=== PATIENT | female | born 1960 | race Caucasian/White ===

== ENCOUNTER 2017-12-06 07:20 | Day surgery (SDC) | payer OTHER ==
[2017-12-06] MEDS ORDERED: PROPOFOL 200 MG/20 ML VIAL As Ordered ×2 (07:25→09:17)
[2017-12-06] MEDS: NS 1,000 ML IV (07:34)
== END 2017-12-06 09:46 | disposition home or self-care (01) ==
LOC: M SDC 07:20
DX: K64.0 First degree hemorrhoids (principal); R10.30 Lower abdominal pain, unspecified; R19.4 Change in bowel habit; E03.9 Hypothyroidism, unspecified; Z88.0 Allergy status to penicillin; Z88.2 Allergy status to sulfonamides; Z79.899 Other long term (current) drug therapy; K58.8 Other irritable bowel syndrome; J45.909 Unspecified asthma, uncomplicated
CPT/HCPCS: 45378

== ENCOUNTER → 2018-09-15 | Outpatient (CLI) | payer OTHER ==
[~2018-09-15] MED LIST: CALC600T57 PO; DICY1CAP8 PO; OMEG100011 PO; PARO10TA3 PO; SIMV40TA2 PO; TIRO112C3 PO; VITA200015 PO; VITA50005 PO
--- NOTE | 2018-09-25 15:25 | SLEEPHOME ---
DATE OF PROCEDURE: 09/15/2018 INTERPRETATION: Diagnostic home sleep testing was performed due to concern for sleep apnea syndrome in this patient with symptoms of excessive daytime sleepiness, insomnia, snoring, and observed apneas. Portable home monitoring was performed using NOX-T3 respiratory monitoring device. Continuous record was made of pulse, oxygen saturation, airflow, chest and abdominal strain. There were 494.5 minutes of data analyzed of presumed sleep. During this sleep interval, 374 respiratory events were identified of 10 seconds in duration or longer for a respiratory event index of 45.4. The events were predominantly obstructive apneas and hypopneas, though there were some mixed events identified. The patient's baseline saturation was 93% with a minimum recorded value of 74%. The patient's average pulse was 71.4 beats per minute, with her highest heart rate 101 beats per minute. Testing was performed in all positions. IMPRESSION: Abnormal home sleep test with repetitive respiratory events. A respiratory event index of at least 45.4 is consistent with severe obstructive sleep apnea. She also has desaturated down to low 70s. RECOMMENDATIONS: Recommend the patient be sent to the sleep disorder center for formal determination of pressure therapy. I feel this is very important, particularly given how low her oxygen saturation can get when she is sleeping.
== END ==
LOC: M SLEEP HO 09:34
PROVIDERS: ATTEND Internal Medicine Pulmonary Disease
DX: R40.0 Somnolence (principal)

== ENCOUNTER → 2020-04-05 | Outpatient (CLI) | payer OTHER ==
[~2020-04-05] MED LIST changes: +D31000TA2 PO; +MULTCAP PO; +OCUV1CAP4 PO; +OMEG1CAP4; +SIMV20TA22; -SIMV40TA2 PO; +SIMV40TA20 PO; +TIRO100C3
== END ==
LOC: M LABSMTC 10:51
PROVIDERS: ATTEND Anesthesiology
DX: Z01.812 Encounter for preprocedural laboratory examination (principal); Z20.828 Contact with and (suspected) exposure to other viral communicable diseases
CPT/HCPCS: C9803; U0003

== ENCOUNTER 2020-04-10 08:32 | Day surgery (SDC) | payer BC ==
[~2020-04-10] VITALS: Ht 165.1 cm; Wt 69.9 kg
[~2020-04-10 08:32] MED LIST changes: +LIDOCAINE 1% MDV 20ML VIAL SQ PRN; +LR 1,000 ML IV ONE; +PHENAZOPYRIDINE 100 MG TAB PO ONE; +ceFAZolin SOD 2 GM in IV 1 EA IV ONE
[2020-04-10 09:26] LABS: HEMATOCRIT 44.7 % (36.0-47.0); HEMOGLOBIN 14.7 g/dl (12.0-15.5); MEAN CORPUSCULAR HEMOGLOBIN 29.3 pg (27.0-33.0); MEAN CORPUSCULAR HGB CONC 32.9 g/dl (32.0-36.5); PLATELET COUNT, AUTOMATED 271 10^3/uL (150-450); RED BLOOD COUNT 5.02 10^6/uL (4.00-5.40); WHITE BLOOD COUNT 6.3 10^3/uL (4.0-10.0)
[2020-04-10] MEDS ORDERED: REST0.057 OP (09:31)
[2020-04-10] MEDS ORDERED: ROCURONIUM BROMIDE 50 MG/5 ML VIAL As Ordered ONE ×2 (11:09→11:18)
[2020-04-10] MEDS ORDERED: KETOROLAC 60MG 2ML VIAL As Ordered ONE (11:09)
[2020-04-10] MEDS ORDERED: ONDANSETRON 4MG/2ML VIAL As Ordered ONE (11:09)
[2020-04-10] MEDS ORDERED: SUGAMMADEX SODIUM 500 MG/5 ML VIAL (BRIDION) As Ordered ONE (11:09)
[2020-04-10] MEDS ORDERED: propofoL 200 MG/20 ML VIAL As Ordered ONE (11:09)
[2020-04-10] MEDS ORDERED: LIDOCAINE 2% 100MG/5ML SDV (FOR ANES.) As Ordered ONE (11:09)
[2020-04-10] MEDS ORDERED: HYDROmorphone HCL 2 MG/ML 1ML VIAL (J1170) As Ordered ONE (11:09)
[2020-04-10] MEDS ORDERED: MIDAZOLAM INJ 2MG/2ML VIAL (J2250 PER 1MG) As Ordered ONE (11:09)
[2020-04-10] MEDS ORDERED: fentaNYL 100 MCG/2 ML INJECTION (J3010) As Ordered ONE ×2 (11:09→14:16)
[2020-04-10] MEDS ORDERED: dexameTHASONE 4 MG/ML 1ML VIAL (J1100 PER 1MG) As Ordered ONE (11:09)
[2020-04-10] MEDS ORDERED: ACETAMINOPHEN 1000MG 100ML IV BTL (OFIRMEV) (J0131 PER 10MG) As Ordered ONE (11:17)
[2020-04-10] MEDS ORDERED: VASOPRESSIN INJ 20 UNITS/ML VIAL As Ordered ONE (11:18)
[2020-04-10] MEDS ORDERED: hydrALAZINE 20MG/ML 1ML VIAL (J0360 PER 20MG) As Ordered ONE (11:43)
[2020-04-10] MEDS ORDERED: DESFLURANE 240 ML INHALANT As Ordered ONE (12:00)
[2020-04-10] MEDS ORDERED: MORPHINE 1MG/ML IN 0.9% NACL 100ML IV BAG As Ordered ONE (14:01)
[2020-04-10] MEDS ORDERED: ONDANSETRON 4MG/2ML VIAL IV PRN (14:15)
[2020-04-10] MEDS ORDERED: oxyCODONE 5MG TAB PO PRN (14:15)
[2020-04-10] MEDS ORDERED: LR 1,000 ML IV SCH ×2 (14:15→14:30)
[2020-04-10] MEDS ORDERED: fentaNYL 100 MCG/2 ML INJECTION (J3010) IV PRN (14:15)
[2020-04-10] MEDS ORDERED: NALOXONE INJ 0.4MG/1ML VIAL (J2310 PER 1MG) IV PRN (14:30)
[2020-04-10] MEDS ORDERED: diphenhydrAMINE 50MG/ML VIAL (J1200) IV PRN (14:30)
[2020-04-10] MEDS ORDERED: MORPHINE 1MG/ML IN 0.9% NACL 100ML IV BAG IV PRN (14:30)
[2020-04-10] MEDS ORDERED: EPIDURAL/PCA KEYS XX PRN (14:30)
[2020-04-10] MEDS ORDERED: IBUPROFEN 600MG TAB PO PRN (14:30)
[2020-04-10] MEDS ORDERED: NALBUPHINE HCL 10 MG/ML AMP (J2300) IV PRN (14:30)
[2020-04-10 15:50] VITALS: BP 100/54
[2020-04-10 16:20] VITALS: BP 106/55
[2020-04-10 17:20] VITALS: BP 128/58
[2020-04-10 18:20] VITALS: BP 110/58
[2020-04-10 19:45] VITALS: BP 126/60
[2020-04-10] MEDS ORDERED: SIMVASTATIN 20 MG TAB PO SCH (21:00)
[2020-04-10] MEDS ORDERED: PROMETHAZINE INJ 25 MG/ML VIAL (J2550) IV ONE (21:15)
[2020-04-10] MEDS: OMEGA-3 1000MG CAPSULE PO SCH (22:06)
[2020-04-11] VITALS: BP 142/66
[2020-04-11 04:00] VITALS: BP 124/58
[2020-04-11] MEDS ORDERED: NORCO, ANEXSIA 5/325MG TABLET (HYDROcodone/ACETAMINOPHEN) PO PRN (06:00)
[2020-04-11] MEDS ORDERED: LEVOTHYROXINE 100MCG TABLET (0.1MG) PO SCH (06:00)
[2020-04-11 07:59] LABS: HEMATOCRIT 37.4 % (36.0-47.0); MEAN CORPUSCULAR HGB CONC 31.8 g/dl (32.0-36.5); MEAN CORPUSCULAR VOLUME 91.2 fl (80.0-96.0); PLATELET COUNT, AUTOMATED 247 10^3/uL (150-450); WHITE BLOOD COUNT 13.4 10^3/uL (4.0-10.0)
[2020-04-11 08:00] VITALS: BP 116/56
[2020-04-11 08:03] LABS: HEMOGLOBIN 11.9 g/dl (12.0-15.5)
[2020-04-11] MEDS: OMEGA-3 1000MG CAPSULE PO SCH (09:25)
[2020-04-11] MEDS ORDERED: IBUP-1114 PO (11:01)
[2020-04-11] MEDS ORDERED: NORC1TAB7 PO (11:01)
--- NOTE | 2020-04-11 11:03 | RO ---
DATE OF OPERATION: 04/10/2020 PREOPERATIVE DIAGNOSIS: Symptomatic prolapse and desire for oophorectomy. POSTOPERATIVE DIAGNOSIS: Symptomatic prolapse and desire for oophorectomy. PROCEDURE: Laparoscopic-assisted vaginal hysterectomy with bilateral salpingo- oophorectomy and sacrospinous suspension with anterior and posterior repair, perineorrhaphy and cystourethroscopy. SURGEON: Sally Lewis MD PICK UP DRIVER: None ANESTHESIA: General endotracheal anesthesia BRIEF DESCRIPTION OF PROCEDURE AND FINDINGS: Calli was brought to the operating room where sufficient general endotracheal anesthesia was induced and she was prepped, draped and positioned in the usual sterile fashion. The uterine manipulator placed and the Hall with the ability to backfill placed. A semilunar incision was made below the umbilicus with sharp and blunt dissection continued to the level of the rectus fascia which was elevated with Deny clamps, transversely incised and carefully evaluated so that we could dissect to the level of the peritoneum underwent direct visualization and the Gerber was placed into the peritoneal cavity in open laparoscopic again under direct visualization with the 0 Vicryl retention sutures used to secure the Greber trocar. CO2 insufflation was then begun. After adequate CO2 insufflation, the peritoneal cavity was visualized. There were some minor adhesions on the left side and a benign appearing paratubal cyst but otherwise normal appearance. Using the #45 Enseal, the infundibulopelvic ligaments were carefully isolated, cauterized, transected and then the dissection continued through the broad ligament to the level of the round which was also carefully cauterized and transected and the superior aspect of the broad ligament further dissect and then attention was turned to the vaginal portion of the case with the instruments removed above, trocar left in place and the uterine manipulator removed and single-tooth tenacula placed on the anterior and posterior aspect of the cervix. Working vaginally, a circumferential incision was made around the base of the cervix. Sharp and blunt dissection was used to dissect free the tissues until the cardinal ligaments could be isolated and the BeltranLynch clamps were used to clamp them. They were transected and then 0 Vicryl used to suture these pedicles. The uterosacral ligament then carefully clamped, transected and ligated and held for resecuring with the cuff and the peritoneal reflection entered posteriorly and then anteriorly and the uterus carefully delivered with the uterine vasculature, carefully clamped, transected and ligated in a sequential fashion around the lateral aspect of the uterus which was delivered with the attached ovaries and tubes which already had been freed from above. Working again vaginally, the peritoneum at the vaginal cuff was closed and then the dissection was continued anteriorly and posteriorly to free the vaginal vesical tissues anteriorly and the rectovaginal tissues posteriorly in preparation for the sacrospinous suspension. We then dissected to the right sacrospinous ligament and Anchorsure anchors were placed. We used two Anchorsure anchors. Each of those anchors had two 2-0 Maxon sutures so that we had four sutures when we were done and with the peritoneum already closed, we used a Cardoza needle to bring out those sutures in a four point suspension of the vaginal cuff. We had already taken a V of tissue anteriorly over the cystocele and then used Allis clamps to hold the tissue and bring them up to the ligament so that we estimate appropriate placement for these sutures and then having placed all four points for our four point suspension, we closed the cuff itself, letting the V open up and come across anteriorly because there was redundancy there and with the cuff closed and good hemostasis and of course the count correct, we went ahead and tied down the first throw on each of those four sutures for the four point suspension and then did cystourethroscopy. The patient had taken pyridium preoperatively and we were readily able to see jets of urine from both ureters and an absence of injury to the bladder of any sort and reasonable support especially in this patient who is only 59 years old and of course, wants continued function. We went ahead then and threw the rest of the throws on those Maxon suture and then reevaluated at the introitus because she had a separation of the rectovaginal septum and the perineal body which created a weak spot especially extending to the left side. So we went ahead and took a triangle of tissue at the introitus and then extended that triangle into sort of a gia- like shape up into the vagina, overlaying this defect in the rectovaginal septum. I then dissected the vaginal epithelium free and used 2-0 Vicryl to support the underlying tissues to close that defect and reconnect the septum to the perineal body and to also plicate the levators but we took care to close that defect. We then resupported the perineal body with 0 Vicryl and then closed the skin layer with 2-0 Vicryl in a running locked stitch in the vagina and then a subcu stitch over the perineum and then that portion of the procedure was ended. There was good hemostasis and approximation at each of these steps. We turned our attention back to the abdomen and removed the trocar at the umbilicus, used the 0 Vicryl retention sutures to close the deep layer and then used 3-0 Vicryl in a subcuticular stitch to close the skin and a dry sterile dressing was then applied. ESTIMATED BLOOD LOSS: For the procedure, about 100 mL. FLUID REPLACEMENT: Crystalloid. COMPLICATIONS: None. CONDITION AND DISPOSITION: Calli tolerated the procedure well and was recovering in the recovery room in good condition. NNEKA
--- NOTE | 2020-04-11 15:24 | ECGEPIP ---
[facility] Test Date: 2020-04-10 Pat Name: JAYLA ZIMMERMAN Department: Room: - Gender: Female Objective C Developer: : 1960 Requested By: Danilo Reid Order Number: [id number] Reading MD: Blas Chiang Measurements Intervals Lewellen Rate: 67 P: 52 NV: 187 QRS: -7 QRSD: 81 T: 36 QT: 384 QTc: 406 Interpretive Statements Normal sinus rhythm Normal EKG No significant change since prior tracing of 08/29/2015 Electronically Signed on 04-11-2020 15:24:31 EST by Blas Chiang
== END 2020-04-11 11:45 | disposition home or self-care (01) ==
LOC: M SDC 08:32 → M PED 15:45 → M SDC 04-11 11:45
PROVIDERS: ATTEND Obstetrics & Gynecology
DX: N81.4 Uterovaginal prolapse, unspecified (principal); J45.909 Unspecified asthma, uncomplicated; G47.30 Sleep apnea, unspecified; G43.909 Migraine, unspecified, not intractable, without status migrainosus; K76.0 Fatty (change of) liver, not elsewhere classified; K58.8 Other irritable bowel syndrome; E03.9 Hypothyroidism, unspecified; Z88.2 Allergy status to sulfonamides; Z88.0 Allergy status to penicillin
CPT/HCPCS: 36415; 57260; 57282; 58571; 85027; 86850; 86900; 86901; 88307; 93005; 96374; C1713; J0131; J0360; J0690; J1100; J1170; J1885; J2250; J2405; J3010

== ENCOUNTER → 2020-09-03 | Outpatient (CLI) | payer BC ==
[~2020-09-03] MED LIST changes: +CYSTO-CONRAY II 17.2% 250ML VIAL (Q9958) As Ordered ONE; +IBUP-1114 PO; -LIDOCAINE 1% MDV 20ML VIAL SQ PRN; -LR 1,000 ML IV ONE; +NORC1TAB7 PO; -OMEG1CAP4; +OMEG1CAP85; -PHENAZOPYRIDINE 100 MG TAB PO ONE; +REST0.057 OP; -ceFAZolin SOD 2 GM in IV 1 EA IV ONE
--- NOTE | 2020-09-03 18:05 | REP ---
INDICATION: FLATUS FROM BLADDER ? OPENING OR FISTULA. COMPARISON: None TECHNIQUE: This procedure was performed by JULIA Mosley, under the direct supervision of Dr. Mendes. Images were reviewed with Dr. Mendes prior to dictation. The bladder was catheterized using aseptic precautions, and standard technique. Two hundred fifty ml of Cysto-Conray II was instilled into the bladder in a retrograde flow. Multiple fluoroscopic radiographs were obtained. FINDINGS: The bladder is normal in position and contour. There is no evidence of restricted diffusion or urethral reflux. There is essentially no postvoid residual. There is no extravasation of contrast. IMPRESSION: Unremarkable cystogram. 0.2 minutes of fluoroscopy time was utilized for this procedure. Some fluoroscopic images are performed with last image hold technology. These images require no additional radiation. <Electronically signed by Kayla Bills > 09/03/20 1632 <Electronically signed by Samuel Mendes > 09/03/20 [id number]
== END ==
LOC: M RADPRO 09:11
PROVIDERS: ATTEND Obstetrics & Gynecology
DX: R14.3 Flatulence (principal)
CPT/HCPCS: 51600; 74430; Q9958

== ENCOUNTER → 2022-03-08 | Outpatient (CLI) | payer BC ==
[~2022-03-08] MED LIST changes: -CYSTO-CONRAY II 17.2% 250ML VIAL (Q9958) As Ordered ONE; -D31000TA2 PO; +ERGO500029 PO; +VITA100093 PO
== END ==
LOC: M SLEEP 20:00
PROVIDERS: ATTEND Internal Medicine Pulmonary Disease
DX: G47.33 Obstructive sleep apnea (adult) (pediatric) (principal)

== ENCOUNTER → 2023-07-06 | Outpatient (CLI) | payer BC | LOC: M RAD 13:43 | PROVIDERS: ATTEND Nurse Practitioner Family | DX: M79.89 Other specified soft tissue disorders (principal) ==

== ENCOUNTER 2023-09-20 06:09 | Day surgery (SDC) | payer BC ==
[~2023-09-20] VITALS: Ht 165.1 cm; Wt 72.6 kg
[~2023-09-20 06:09] MED LIST changes: +B-12100011 PO; +CALC250T PO; +FENO160T10 PO; +LEVO112C PO; +LUTE2000 PO; +MAGN100T PO; +VENL150T24 PO; +VITA500045 PO
[2023-09-20] MEDS ORDERED: fentaNYL 100 MCG/2 ML INJECTION As Ordered ONE (06:36)
[2023-09-20] MEDS ORDERED: MIDAZOLAM INJ 2MG/2ML VIAL As Ordered ONE (06:36)
[2023-09-20] MEDS ORDERED: KETOROLAC 60MG 2ML VIAL As Ordered ONE (06:37)
[2023-09-20] MEDS ORDERED: ACETAMINOPHEN 1000MG 100ML IV BAG As Ordered ONE (06:37)
[2023-09-20] MEDS ORDERED: ONDANSETRON 4MG 2ML VIAL As Ordered ONE (06:37)
[2023-09-20] MEDS ORDERED: ROCURONIUM BROMIDE 50MG/5ML VIAL As Ordered ONE (06:38)
[2023-09-20] MEDS ORDERED: SUGAMMADEX SODIUM 500 MG/5 ML VIAL (BRIDION) As Ordered ONE (06:38)
[2023-09-20] MEDS ORDERED: propofoL 200 MG/20 ML VIAL As Ordered ONE (06:38)
[2023-09-20] MEDS ORDERED: LIDOCAINE 2% 100MG/5ML SDV (FOR ANES.) As Ordered ONE (06:39)
[2023-09-20] MEDS ORDERED: LR 1,000 ML IV SCH ×2 (06:40→09:35)
[2023-09-20] MEDS: ceFAZolin SOD 2 GM in IV 1 EA IV ONE (07:35)
[2023-09-20 07:40] LABS: HEMATOCRIT 40.7 % (36.0-47.0); HEMOGLOBIN 13.3 g/dl (12.0-15.5); MEAN CORPUSCULAR HEMOGLOBIN 29.8 pg (27.0-33.0); MEAN CORPUSCULAR HGB CONC 32.7 g/dl (32.0-36.5); MEAN CORPUSCULAR VOLUME 91.1 fl (80.0-96.0); PLATELET COUNT, AUTOMATED 297 10^3/uL (150-450); RED BLOOD COUNT 4.47 10^6/uL (4.00-5.40); WHITE BLOOD COUNT 5.3 10^3/uL (4.0-10.0)
[2023-09-20 08:03] LABS: BLOOD UREA NITROGEN 28 MG/DL (9-23); CALCIUM LEVEL 9.3 MG/DL (8.3-10.6); CARBON DIOXIDE LEVEL 27 MMOL/L (20-31); CHLORIDE LEVEL 105 MMOL/L (98-107); CREATININE FOR GFR 0.79 MG/DL (0.55-1.30); GLOMERULAR FILTRATION RATE > 60.0 (>45); GLUCOSE, FASTING 101 MG/DL (74-106); POTASSIUM SERUM 4.5 MMOL/L (3.5-5.1); SODIUM LEVEL 139 MMOL/L (136-145)
[2023-09-20] MEDS ORDERED: ONDANSETRON 4MG 2ML VIAL IV PRN (09:35)
[2023-09-20] MEDS ORDERED: fentaNYL 100 MCG/2 ML INJECTION IV PRN (09:35)
[2023-09-20] MEDS: oxyCODONE 5MG TAB PO PRN (09:50)
[2023-09-20 10:26] VITALS: BP 128/63; TEMP 98.1; O2SAT 95
== END 2023-09-20 10:44 | disposition home or self-care (01) ==
LOC: M SDC 06:09
PROVIDERS: ATTEND Surgery
DX: D17.1 Benign lipomatous neoplasm of skin and subcutaneous tissue of trunk (principal); E78.00 Pure hypercholesterolemia, unspecified; E06.3 Autoimmune thyroiditis; J45.909 Unspecified asthma, uncomplicated; K58.9 Irritable bowel syndrome, unspecified; G47.30 Sleep apnea, unspecified; Z79.899 Other long term (current) drug therapy; Z88.0 Allergy status to penicillin; Z88.2 Allergy status to sulfonamides; Z90.710 Acquired absence of both cervix and uterus; Z90.49 Acquired absence of other specified parts of digestive tract
CPT/HCPCS: 21552; 36415; 80048; 85027; 88304; 93005; J0131; J0665; J0690; J1100; J1885; J2250; J2405; J3010

== ENCOUNTER 2025-03-19 10:26 | Day surgery (SDC) | payer BC ==
[~2025-03-19] VITALS: Ht 165.1 cm; Wt 65.3 kg
[~2025-03-19 10:26] MED LIST changes: +DENO60SY2 SC; +ERGO125013 PO; -LEVO112C PO; +LEVO112C2 PO; +OMEG-28; -OMEG1CAP85; +PRO PO; -SIMV20TA22; +SIMV20TA22 PO; +SYST1SOL4 OU; +TIRO100C3 PO; -VITA500045 PO; +[UNRECOGNIZED DRUG - OTHER] PO; +[UNRECOGNIZED DRUG - OTHER] PO
[2025-03-19] MEDS ORDERED: LR 1,000 ML IV SCH (11:00)
[2025-03-19] MEDS ORDERED: MIDAZOLAM INJ 2 MG/2 ML VIAL As Ordered ONE (12:30)
[2025-03-19] MEDS ORDERED: LIDOCAINE 2% 100 MG/5 ML SDV (FOR ANES.) As Ordered ONE (12:42)
[2025-03-19] MEDS: ceFAZolin SOD 2 GM IV ONCE IV ONE (12:49)
[2025-03-19] MEDS ORDERED: ACETAMINOPHEN 1000MG/100ML IV BAG As Ordered ONE (12:54)
[2025-03-19 14:17] VITALS: BP 138/70; TEMP 97.5; O2SAT 99
== END 2025-03-19 14:17 | disposition home or self-care (01) ==
LOC: M SDC 10:26
PROVIDERS: ATTEND Surgery
DX: D17.21 Benign lipomatous neoplasm of skin and subcutaneous tissue of right arm (principal); J45.909 Unspecified asthma, uncomplicated; E03.9 Hypothyroidism, unspecified; E78.5 Hyperlipidemia, unspecified; K58.8 Other irritable bowel syndrome; M81.0 Age-related osteoporosis without current pathological fracture; G47.33 Obstructive sleep apnea (adult) (pediatric); Z79.899 Other long term (current) drug therapy; Z88.0 Allergy status to penicillin; Z88.2 Allergy status to sulfonamides; J30.2 Other seasonal allergic rhinitis
CPT/HCPCS: 11401; 88304; J0131; J0665; J0666; J0688; J2250; J3010

== ENCOUNTER → 2025-05-01 | Outpatient (CLI) | payer BC | LOC: M RAD 09:45 | PROVIDERS: ATTEND Surgery | DX: D17.21 Benign lipomatous neoplasm of skin and subcutaneous tissue of right arm (principal) ==